=== PATIENT | female | born 1980 | race American Indian/Alaskan Native ===

== ENCOUNTER 2016-11-02 13:49 | Emergency (ER) | payer OTHER ==
[2016-11-02] MEDS ORDERED: ATIVAN IM ONE (15:22)
[2016-11-02 15:54] LABS: Urine Drugs of Abuse Note Disclamer
[2016-11-02 15:59] LABS: Anion Gap 15 mmol/L; BUN/Creatinine Ratio 5.71; Blood Urea Nitrogen 4 mg/dL (7-17); Calcium 8.6 mg/dL (8.4-10.2); Carbon Dioxide 25 mmol/L (22-30); Chloride 106.3 mmol/L (98-107); Glucose 79 mg/dL (65-100); Potassium 4.3 mmol/L (3.6-5.0); Sodium 142 mmol/L (137-145)
--- NOTE | 2016-11-02 16:00 | Emergency Department Report ---
HPI - General Chief Complaint: Overdose Time Seen by Provider: 11/02/16 15:21 - HPI HPI: The patient is a 35-year-old female presents for evaluation of mental health. The patient reports experiencing constant severe sadness and suicidal ideation for the past one week. She reports that she intentionally consumed an unknown amount of Tylenol PM at 11 AM today, 4 hours prior to my evaluation. The patient denies fever, headache, chest pain, abdominal pain, vomiting, hematemesis, unexplained weight loss or weight gain, heat or cold intolerance, skin, hair, or nail changes, neuro deficits, homicidal ideations, or auditory or visual hallucinations. ED Past Medical Hx - Past Medical History Previous Medical History?: No - Surgical History Past Surgical History?: No - Social History Smoking Status: Current Every Day Smoker Substance Use Type: None - Medications Home Medications: Home Medications Medication Instructions Recorded Confirmed Last Taken Type No Known Home Medications [No 11/02/16 11/02/16 Unknown History Reported Home Medications] ED Review of Systems ROS: Stated complaint: SUICIDE ATTEMPT Other details as noted in HPI Constitutional: denies: fever ENT: denies: throat or neck pain Respiratory: denies: cough, shortness of breath Cardiovascular: denies: chest pain Endocrine: denies unexplained weight loss or gain Gastrointestinal: reports abdominal pain, nausea Genitourinary: denies: dysuria Musculoskeletal: denies: leg swelling Skin: denies: rash Neurological: denies: headache Hematological/Lymphatic: denies: easy bleeding or easy bruising Psych: denies sadness or hopelessness Physical Exam - Physical Exam Vital Signs: Vital Signs 11/02/16 14:57 Temperature 98 F Pulse Rate 88 Respiratory 18 Rate Blood Pressure 122/74 [Right] O2 Sat by Pulse 97 Oximetry Physical Exam: General: well-nourished, well-developed, no acute distress Head: Normocephalic, atraumatic Eyes: normal sclera ENT: Mucous membranes are pink and moist Neck: trachea midline, neck supple, No neck stiffness, no cervical adenopathy Respiratory: Breath sounds equal bilaterally, no wheezing, rales, or rhonchi Cardio: S1 and S2 present, no murmurs, rubs, gallops, capillary refill is brisk Abdomen: Normoactive bowel sounds, soft abdomen, no tenderness Chest WALL/Back: No tenderness to palpation of the chest wall, no CVA tenderness with percussion Musc: No pitting edema Skin: No rash Neuro: no facial drooping, normal speech Psych: Normal affect ED Course Vital Signs 11/02/16 14:57 Temperature 98 F Pulse Rate 88 Respiratory 18 Rate Blood Pressure 122/74 [Right] O2 Sat by Pulse 97 Oximetry ED Medical Decision Making - Lab Data Result diagrams: 11/02/16 15:25 11/02/16 15:25 - Medical Decision Making The patient was seen and examined by myself. The patient is placed on a monitor tech and continuous pulse ox. On initial evaluation, the patient was found to be in no distress. Labs are obtained. Mental health evaluates the patient and agrees that the patient is at risk of harm to self. A 1013 is completed. Initial Tylenol level is not elevated. Repeat Tylenol level 4 hours post ingestion is pending. The patient signed off to the on coming [address] Dougherty. She agrees to follow-up on pending Tylenol level and other lab results, and to arrange appropriate ultimate disposition. 11/03/2016 Review patient medical records reveals the patient's repeat Tylenol level 4 hours post ingestion was also negative and the patient was medically cleared. The patient will be admitted to a psychiatric facility once bed placement is obtained. Critical care attestation.: If time is entered above; I have spent that time in minutes in the direct care of this critically ill patient, excluding procedure time. ED Disposition Clinical Impression: Suicidal behavior with attempted self-injury, Intentional overdose of drug in tablet form, At high risk for suicide Disposition: DC/TX-65 PSY HOSP/PSY UNIT Is pt being admited?: No Does the pt Need Aspirin: No Condition: Serious Referrals: PRIMARY CARE, [Primary Care Provider] - 3-5 Days Time of Disposition: 15:56
[2016-11-02 16:03] LABS: Basophils % (Auto) 0.7 % (0.0-1.8); Eosinophils % (Auto) 0.5 % (0.0-4.3); Hematocrit 41.6 % (30.3-42.9); Hemoglobin 13.8 gm/dl (10.1-14.3); Mean Corpuscular HGB Conc 33 % (30-34); Mean Corpuscular Hemoglobin 31 pg (28-32); Mean Corpuscular Volume 94 fl (79-97); Platelet Count 171 K/mm3 (140-440); Red Blood Count 4.44 M/mm3 (3.65-5.03); White Blood Count 6.6 K/mm3 (4.5-11.0)
[2016-11-02 16:08] LABS: Bilirubin,Urine NEG (Negative); Blood,Urine SM (Negative); Ketones,Urine NEG (Negative); Leukocyte Esterase,Urine SM (Negative); Nitrite,Urine NEG (Negative); Protein,Urine <15 mg/dL mg/dL (Negative); Urobilinogen,Urine < 2.0 mg/dL (<2.0)
--- NOTE | 2016-11-03 17:44 | Consultation ---
History of Present Illness - Reason for Consult Consult date: 11/03/16 Reason for consult: psychiatric evaluation - Chief Complaint Chief complaint: "I didn't do anything" 36 year old female seen for psychiatric evaluation in the ER. She reports going through stress and recently received an eviction notice. Her son made a statement about when is she going to be able to provide for them. She states this made her feel worthless. She went to the park and spoke with her tamping machine operator for guidance. She reportedly told him she was tired of not being able to provide. She did not sleep after the argument with her son. She reports taking an OTC sleep aid but denies taking more than recommended. She fell asleep in the car and woke up to the police. The record indicates she may have overdosed on tylenol. She adamately denies this. Her acetominophen level was <15 x 2. No suicide attempts in the past and no self injurious behavior in the past. She denies intention or plan to harm herself. No psychotic symptoms reported or signs elicited. Medications and Allergies Allergies Allergy/AdvReac Type Severity Reaction Status Date / Time No Known Allergies Allergy Unverified 11/02/16 14:38 Home Medications Medication Instructions Recorded Confirmed Last Taken Type No Known Home Medications [No 11/02/16 11/02/16 Unknown History Reported Home Medications] Past psychiatric history - Past Medical History Past Medical History: No medical history Past Surgical History: No surgical history - past Psychiatric treatment and history psychiatric treatment history: None - Social History Social history: smoking, other (lives with her 20 year old son) Mental Status Exam - Vital signs Last Vital Signs Temp 98.4 F 11/03/16 11:09 Pulse 62 11/03/16 11:09 Resp 18 11/03/16 11:09 BP 118/78 11/03/16 11:09 Pulse Ox 99 11/03/16 11:08 - Exam Orientation: time, place, person Affect: anxious Mood: congruent with affect Thought content: other (no SI, no HI) Thought Process: Intact Perceptions: none Speech: normal rate and pattern Concentration: focused Motor activity: normal Level of consciousness: alert Memory: Intact Sleep Symptoms: Difficulty Falling Asleep Interaction: cooperative Results Result Diagrams: 11/02/16 15:25 11/02/16 15:25 All other labs normal. Assessment and Plan Assessment and plan: Impression: Acute stress reaction. Today patient is calm and cooperative during assessment. She denies SI/HI's and AVH's. Positive for marijuana. negative for etoh. I. This screening and assessment is based on information collected from the following sources: Patient II. SUICIDE RISK SCREENING (within last 30 days): A.) Suicidal thoughts/behaviors: She reported being "tired of not being able to provide." She denied suicidal ideation. SUICIDE RISK ASSESSMENT III. FACTORS THAT INCREASE RISK: A.) Demographic and Substance Use Factors: smokes marijuana. denies alcohol use or other illicit substance use B.) Current/Recent Factors (within past 3 months): Psychosocial/Environmental Factors: eviction, argument with her son Physical Illness: None Cognitive/Psychological Factors: None C.) Historical Factors: None D.) Diagnostic/Symptom/Treatment Factors: None E.) Acute Risk Factor Severity (DESC; MILD/MOD/SEVERE): Mild Other factors for this individual that increase risk: IV. FACTORS THAT DECREASE RISK: Resilience/Protective Factors: She is employed x 1 year. Denies known risk of upcoming termination. Patient has support from her tamping machine operator, social club, and mother. She displayed help seeking behavior with this recent stressor by calling her tamping machine operator. Other factors for this individual that decrease risk: Patient denies a desire to harm self. The situation with her son has been resolved when they spoke. V. Clinician's Formulation of Risk and Determination of level of Care: This is a 36-year-old female who is experiencing stress about her life. Since being hospitalized, the patient has consistently denied the desire to harm herself. Additionally, she has become insightful about how to better address her current issue and is open to outpatient counseling. Patient is not impaired by substance. She is able to take care of her ADLs and is not at imminent risk of harm to self or others. Consequently, it is the opinion of the treatment team that the patient is at low risk of suicide and does not meet criteria to continue an involuntary psychiatric hold. Estimation of Imminent Risk: Low due to the above explanation. Determination of Level of Care based on Suicide Risk: Outpatient follow-up. Narrative description of clinical reasoning. (This must be completed on all patients): . Plan and Interventions based on Suicide Risk: This patient will likely be stepped down to an outpatient mental health center in the community upon discharge and follow-up within 7 days of his discharge from the hospital. VII. Discharge/After Hours Support Plan: Patient can return back to the ER, call 911 or crisis line if symptoms of depression, anxiety, suicidality return. Recommendation/Plan: Rescind 1013. No medications indicated at this time. Patient given outpatient psy services information for her local area. Payroll Analyst provided the patient with locations to seek primary care services. Discussed the importance to abstain from alcohol consumption and recreational drug use.
[2016-11-04 12:41] VITALS: BP 115/80
--- NOTE | 2016-11-04 15:53 | Progress Note ---
Subjective - Reason for Consult Reason for consult: evaluate if 1013 can be rescinded Mental Status Exam - Vital signs Last Vital Signs Temp 98.8 F 11/04/16 12:39 Pulse 68 11/04/16 12:39 Resp 18 11/04/16 12:41 BP 115/80 11/04/16 12:39 Pulse Ox 95 11/04/16 12:41 Assessment and Plan The patient continues to note that she is not experiencing suicidal thoughts and never has. Additionally, patient notes that she never overdosed. General Appearance: casually dressed, no acute distress Sensorium/Consciousness: alert and responding to external stimuli; clear Orientation: person, place, time and situation Eye Contact: Fair Attitude / Behavior: Cooperative Psychomotor & Musculoskeletal Activity: WNL Mood: ok Affect: Euthymic Speech / Language: fluent, with normal rate/rhythm/tone Thought Processes: organized, logical, linear Thought Content: no SI, no HI Perception: no AVH Insight: Fair Judgement: Fair Capacity for ADLs: independent I. This screening and assessment is based on information collected from the following sources: Patient II. SUICIDE RISK SCREENING (within last 30 days): A.) Suicidal thoughts/behaviors: She reported being "tired of not being able to provide." She denied suicidal ideation. SUICIDE RISK ASSESSMENT III. FACTORS THAT INCREASE RISK: A.) Demographic and Substance Use Factors: smokes marijuana. denies alcohol use or other illicit substance use B.) Current/Recent Factors (within past 3 months): Psychosocial/Environmental Factors: eviction, argument with her son Physical Illness: None Cognitive/Psychological Factors: None C.) Historical Factors: None D.) Diagnostic/Symptom/Treatment Factors: None E.) Acute Risk Factor Severity (DESC; MILD/MOD/SEVERE): Mild Other factors for this individual that increase risk: IV. FACTORS THAT DECREASE RISK: Resilience/Protective Factors: She is employed x 1 year. Denies known risk of upcoming termination. Patient has support from her salesperson flowers, social club, and mother. She displayed help seeking behavior with this recent stressor by calling her salesperson flowers. Other factors for this individual that decrease risk: Patient denies a desire to harm self. The situation with her son has been resolved when they spoke. V. Clinician's Formulation of Risk and Determination of level of Care: Estimation of Imminent Risk: Low due to the above explanation. Determination of Level of Care based on Suicide Risk: Outpatient follow-up. Narrative description of clinical reasoning. (This must be completed on all patients): This is a 36-year-old female who is experiencing stress about her life. Since being hospitalized, the patient has consistently denied the desire to harm herself. Additionally, she has become insightful about how to better address her current issue and is open to outpatient counseling. Patient is not impaired by substances. She is able to take care of her ADLs and is not at imminent risk of harm to self or others. Consequently, it is the opinion of the treatment team that the patient is at low risk of suicide and does not meet criteria to continue an involuntary psychiatric hold. . Plan and Interventions based on Suicide Risk: This patient will likely be stepped down to an outpatient mental health center in the community upon discharge and follow-up within 7 days of his discharge from the hospital. VII. Discharge/After Hours Support Plan: Patient can return back to the ER, call 911 or crisis line if symptoms of depression, anxiety, suicidality return. Recommendation/Plan: Rescind 1013. No medications indicated at this time. Patient given outpatient psychiatric services information for her local area. Heel Slicker provided the patient with locations to seek primary care services. Discussed the importance to abstain from alcohol consumption and recreational drug use.
== END 2016-11-04 16:40 | disposition home or self-care (01) ==
LOC: EDBD → ED 13:49
DX: T65.92XA Toxic effect of unspecified substance, intentional self-harm, initial encounter (principal); F17.200 Nicotine dependence, unspecified, uncomplicated; Y92.9 Unspecified place or not applicable
CPT/HCPCS: 36415; 80048; 80307; 81001; 84703; 85025; 93005; 93010; 99285; G0480; 80320

== ENCOUNTER 2020-02-16 12:06 | Emergency (ER) | payer SELFPAY ==
[2020-02-16 13:11] VITALS: BP 158/101
--- NOTE | 2020-02-16 13:11 | Emergency Department Report ---
ED Medical Clearance HPI - General Chief complaint: Psych Stated complaint: MEDICAL CLEARENCE Time Seen by Provider: 02/16/20 12:59 Source: patient Mode of arrival: Ambulatory Limitations: No Limitations - History of Present Illness Initial comments: Chief complaint: "I just got overwhelmed." HPI: This is a 39-year-old female with history of major depressive disorder and previous suicide attempt who presents to the emergency department after intentio nal overdose last night 9 PM. Patient took 7 tablets of Tylenol #3. This morning, sherealized that she needed help. She went to [facility] to be admitted for psychiatric care. Patient was transported with sitter via EMS for medical clearance. Patient denies any physical concerns. Patient denies chest pain abdominal pain vomiting. Patient states that her father's birthday on Sunday caused her great distress. Her father's birthday elicited memories of childhood trauma. Sitter is at the bedside. Complaint: medical clearance request -: Last night Reason for Medical Clearance: psychiatric condition Place: home Alledged Intoxication: No Traumatic Symptoms: denies traumatic injury Treatments Prior to Arrival: other (Admission to [facility].) Home medications: Home Medications Medication Instructions Recorded Confirmed Last Taken No Known Home Medications [No 11/02/16 11/02/16 Unknown Reported Home Medications] Allergies/Adverse reactions: Allergies Allergy/AdvReac Type Severity Reaction Status Date / Time No Known Allergies Allergy Unverified 11/02/16 14:38 ED Review of Systems ROS: Stated complaint: MEDICAL CLEARENCE Other details as noted in HPI Comment: All other systems reviewed and negative Constitutional: denies: fever, malaise Respiratory: denies: cough Cardiovascular: denies: chest pain Gastrointestinal: denies: abdominal pain, nausea, vomiting ED Past Medical Hx - Past Medical History Previous Medical History?: Yes Hx Psychiatric Treatment: Yes (depression, suicide attempts) - Surgical History Past Surgical History?: Yes Additional Surgical History: tubiligation - Social History Smoking Status: Unknown if ever smoked Substance Use Type: None - Medications Home Medications: Home Medications Medication Instructions Recorded Confirmed Last Taken Type No Known Home Medications [No 11/02/16 11/02/16 Unknown History Reported Home Medications] ED Physical Exam - General Limitations: No Limitations General appearance: alert, in no apparent distress - Head Head exam: Present: atraumatic, normocephalic - Eye Eye exam: Present: normal appearance - ENT ENT exam: Present: mucous membranes moist - Neck Neck exam: Present: normal inspection, full ROM - Respiratory Respiratory exam: Present: normal lung sounds bilaterally. Absent: respiratory distress, wheezes, rales, rhonchi - Cardiovascular Cardiovascular Exam: Present: regular rate, normal rhythm, normal heart sounds. Absent: systolic murmur, diastolic murmur, rubs, gallop - GI/Abdominal GI/Abdominal exam: Present: soft, normal bowel sounds. Absent: distended, tenderness, guarding, rebound - Extremities Exam Extremities exam: Present: normal inspection - Neurological Exam Neurological exam: Present: alert, oriented X3 - Psychiatric Psychiatric exam: Present: normal affect, depressed, flat affect, suicidal ideation - Skin Skin exam: Present: warm, dry, intact, normal color. Absent: rash ED Course Vital Signs 02/16/20 02/16/20 13:11 13:12 Temperature 98.5 F Pulse Rate 64 Respiratory 18 18 Rate Blood Pressure 158/101 [Right] O2 Sat by Pulse 97 100 Oximetry ED Medical Decision Making - Lab Data Result diagrams: 02/16/20 13:34 02/16/20 13:34 - Medical Decision Making Ms. Randle presents with suicide attempt. Her ingestion is nonlethal. Acet aminophen level is negative which was obtained 15 hours after her ingestion. She is currently asymptomatic. Hepatic panel normal. I have reviewed labs obtained CBC chemistry hepatic panel all within normal limits. hCG is negative. Urinalysis contaminated sample. Upon reexamination, patient denies symptoms of UTI such as frequency urgency dysuria. Patient is medically clear for psychiatric care. Patient will be transported back to [facility]. ED Disposition Clinical Impression: Intentional drug overdose, Suicide attempt, Major depressive disorder, Medical clearance for psychiatric admission Disposition: DC/TX-70 ANOTHER TYPE HLTHCARE Is pt being admited?: No Does the pt Need Aspirin: No Condition: Stable
[2020-02-16 13:51] LABS: Bacteria,Urine 1+ /HPF (Negative); Bilirubin,Urine NEG (Negative); Blood,Urine LG (Negative); Color,Urine Yellow (Yellow); Mucus,Urine 3+ /HPF; Urobilinogen,Urine < 2.0 mg/dL (<2.0)
[2020-02-16 13:57] LABS: Basophils % (Auto) 0.6 % (0.0-1.8); Eosinophils % (Auto) 0.3 % (0.0-4.3); Hematocrit 47.6 % (30.3-42.9); Lymphocytes # (Auto) 1.6 K/mm3 (1.2-5.4); Lymphocytes % (Auto) 24.4 % (13.4-35.0); Mean Corpuscular HGB Conc 34 % (30-34); Mean Corpuscular Volume 96 fl (79-97); Monocytes # (Auto) 0.4 K/mm3 (0.0-0.8); Monocytes % (Auto) 5.9 % (0.0-7.3); Platelet Count 147 K/mm3 (140-440); Red Blood Count 4.96 M/mm3 (3.65-5.03); Red Cell Distribution Width 14.3 % (13.2-15.2)
[2020-02-16 13:59] LABS: Amphetamine Screen,Urine PRESUMPTIVE NEGATIVE; Benzodiazepines Screen,Urine PRESUMPTIVE NEGATIVE; Cannabinoid Screen,Urine PRESUMPTIVE POSITIVE; Cocaine Screen,Urine PRESUMPTIVE NEGATIVE; Methadone Screen,Urine PRESUMPTIVE NEGATIVE; Opiate Screen,Urine PRESUMPTIVE POSITIVE
[2020-02-16 14:08] LABS: Blood Urea Nitrogen 6 mg/dL (7-17); Calcium 9.1 mg/dL (8.4-10.2); Hemolysis Index 3
[2020-02-16 14:11] LABS: Albumin 3.9 g/dL (3.9-5); Bilirubin,Direct 0.2 mg/dL (0-0.2)
[2020-02-16 14:22] LABS: BUN/Creatinine Ratio 12
== END 2020-02-16 16:50 | disposition other institution (70) ==
LOC: ED 12:06
DX: T50.902A Poisoning by unspecified drugs, medicaments and biological substances, intentional self-harm, initial encounter (principal); R45.851 Suicidal ideations; F32.9 Major depressive disorder, single episode, unspecified; Z98.51 Tubal ligation status; Z00.8 Encounter for other general examination; Y92.89 Other specified places as the place of occurrence of the external cause
CPT/HCPCS: 36415; 80048; 80076; 80307; 80320; 81001; 84703; 85025; 87076; 87086; 87186; G0480

== ENCOUNTER 2020-09-05 16:20 | Emergency (ER) | payer SELFPAY ==
[2020-09-05] MEDS ORDERED: SODIUM CHLORIDE 0.9% 1000 ML 1,000 ML IV ONE (16:45)
--- NOTE | 2020-09-05 16:49 | Emergency Department Report ---
ED Altered Mental Status HPI - General Stated Complaint: SYNCOPE Time Seen by Provider: 09/05/20 16:35 - History of Present Illness Initial Comments: 39-year-old female presents to ED following syncopal episode. 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 Per patient's sister who is at bedside, she states she was told by patient's coworkers that the patient drink 1 alcoholic drink, smoked hookah, and took a 200 mg marijuana edible, then passed out. Patient is currently awake, but not speaking or responding. Sister states patient has a history of chronic back pain, however, she only takes a muscle relaxer. MD Complaint: altered mental status -: hour(s) (1) Severity: moderate Consistency of Symptoms: constant Context: alcohol abuse, drug abuse Treatments Prior to Arrival: spinal immobilization - Related Data Previous Rx's Medication Instructions Recorded Last Taken Type Sulfamethoxazole/Trimethoprim 1 each PO BID 3 Days #6 tablet 09/05/20 Unknown Rx [Bactrim DS TAB] Allergies Allergy/AdvReac Type Severity Reaction Status Date / Time No Known Allergies Allergy Unverified 11/02/16 14:38 ED Review of Systems ROS: Stated complaint: SYNCOPE Other details as noted in HPI Comment: Unobtainable due to pts medical conditions ED Past Medical Hx - Past Medical History Hx Psychiatric Treatment: Yes (depression, suicide attempts) - Surgical History Additional Surgical History: tubiligation - Social History Smoking Status: Unknown if ever smoked Substance Use Type: None - Medications Home Medications: Home Medications Medication Instructions Recorded Confirmed Last Taken Type Sulfamethoxazole/Trimethoprim 1 each PO BID 3 Days #6 tablet 09/05/20 Unknown Rx [Bactrim DS TAB] ED Physical Exam - Head Head exam: Present: atraumatic, normocephalic - Eye Eye exam: Present: normal appearance, PERRL - ENT ENT exam: Present: mucous membranes moist - Neck Neck exam: Present: normal inspection, other (C-collar in place) - Respiratory Respiratory exam: Present: normal lung sounds bilaterally. Absent: respiratory distress - Cardiovascular Cardiovascular Exam: Present: regular rate, normal rhythm - GI/Abdominal GI/Abdominal exam: Present: soft. Absent: distended, tenderness - Extremities Exam Extremities exam: Present: normal inspection - Neurological Exam Neurological exam: Present: altered - Psychiatric Psychiatric exam: Present: flat affect - Skin Skin exam: Present: warm, dry, intact, normal color ED Course Vital Signs 09/05/20 09/05/20 09/05/20 16:26 16:30 16:43 Pulse Rate 88 92 H 90 Respiratory 15 29 H 24 Rate Blood Pressure 143/85 138/85 O2 Sat by Pulse 97 96 Oximetry 09/05/20 09/05/20 09/05/20 16:45 16:55 17:08 Pulse Rate 86 87 Respiratory 26 H 24 16 Rate Blood Pressure 138/81 138/81 O2 Sat by Pulse 97 96 Oximetry 09/05/20 09/05/20 09/05/20 17:16 17:30 18:00 Pulse Rate 86 89 95 H Respiratory 24 24 22 Rate Blood Pressure 140/86 150/78 143/84 O2 Sat by Pulse 97 99 97 Oximetry 09/05/20 09/05/20 18:30 19:00 Pulse Rate 87 80 Respiratory 18 22 Rate Blood Pressure 134/81 134/78 O2 Sat by Pulse 96 97 Oximetry - Reevaluation(s) Reevaluation #1: 09/05/20 18:46 Patient currently at baseline. No longer altered. GCS of 15. Only complaining of a headache. Motrin ordered. Reevaluation #2: 09/05/20 19:09 Pt able to ambulate to the bathroom and back without difficulty or assistance. - Lab Data Result diagrams: 09/05/20 17:18 09/05/20 17:18 Lab Results 09/05/20 09/05/20 09/05/20 Range/Units 16:32 17:18 17:18 WBC 7.2 (4.5-11.0) K/mm3 RBC 4.45 (3.65-5.03) M/mm3 Hgb 15.0 H (10.1-14.3) gm/dl Hct 44.1 H (30.3-42.9) % MCV 99 H (79-97) fl MCH 34 H (28-32) pg MCHC 34 (30-34) % RDW 13.6 (13.2-15.2) % Plt Count 180 (140-440) K/mm3 Lymph % (Auto) 17.5 (13.4-35.0) % [place] % (Auto) 5.0 (0.0-7.3) % Eos % (Auto) 0.2 (0.0-4.3) % Baso % (Auto) 0.3 (0.0-1.8) % Lymph # (Auto) 1.3 (1.2-5.4) K/mm3 [place] # (Auto) 0.4 (0.0-0.8) K/mm3 Eos # (Auto) 0.0 (0.0-0.4) K/mm3 Baso # (Auto) 0.0 (0.0-0.1) K/mm3 Seg Neutrophils % 77.0 H (40.0-70.0) % Seg Neutrophils # 5.5 (1.8-7.7) K/mm3 PT 12.9 (12.2-14.9) Sec. INR 0.98 (0.87-1.13) APTT 26.4 (24.2-36.6) Sec. Sodium (137-145) mmol/L Potassium (3.6-5.0) mmol/L Chloride (98-107) mmol/L Carbon Dioxide (22-30) mmol/L Anion Gap mmol/L BUN (7-17) mg/dL Creatinine (0.6-1.2) mg/dL Estimated GFR ml/min BUN/Creatinine Ratio % Glucose (65-100) mg/dL POC Glucose 105 (70-105) mg/dL Calcium (8.4-10.2) mg/dL Troponin T (0.00-0.029) ng/mL HCG, Qual (Negative) Urine Color (Yellow) Urine Turbidity (Clear) Urine pH (5.0-7.0) Ur Specific [place] (1.003-1.030) Urine Protein (Negative) mg/dL Urine Glucose (UA) (Negative) mg/dL Urine Ketones (Negative) mg/dL Urine Blood (Negative) Urine Nitrite (Negative) Urine Bilirubin (Negative) Urine Urobilinogen (<2.0) mg/dL Ur Leukocyte Esterase (Negative) Urine WBC (Auto) (0.0-6.0) /HPF Urine RBC (Auto) (0.0-6.0) /HPF U Epithel Cells (Auto) (0-13.0) /HPF Urine Mucus /HPF Salicylates (2.8-20.0) mg/dL Urine Opiates Screen Urine Methadone Screen Acetaminophen (10.0-30.0) ug/mL Ur Barbiturates Screen Ur Phencyclidine Scrn Ur Amphetamines Screen U Benzodiazepines Scrn Urine Cocaine Screen U Marijuana (THC) Screen Drugs of Abuse Note Plasma/Serum Alcohol (0-0.07) % 09/05/20 09/05/20 09/05/20 Range/Units 17:18 17:18 17:18 WBC (4.5-11.0) K/mm3 RBC (3.65-5.03) M/mm3 Hgb (10.1-14.3) gm/dl Hct (30.3-42.9) % MCV (79-97) fl MCH (28-32) pg MCHC (30-34) % RDW (13.2-15.2) % Plt Count (140-440) K/mm3 Lymph % (Auto) (13.4-35.0) % [place] % (Auto) (0.0-7.3) % Eos % (Auto) (0.0-4.3) % Baso % (Auto) (0.0-1.8) % Lymph # (Auto) (1.2-5.4) K/mm3 [place] # (Auto) (0.0-0.8) K/mm3 Eos # (Auto) (0.0-0.4) K/mm3 Baso # (Auto) (0.0-0.1) K/mm3 Seg Neutrophils % (40.0-70.0) % Seg Neutrophils # (1.8-7.7) K/mm3 PT (12.2-14.9) Sec. INR (0.87-1.13) APTT (24.2-36.6) Sec. Sodium 140 (137-145) mmol/L Potassium 4.1 (3.6-5.0) mmol/L Chloride 102.4 (98-107) mmol/L Carbon Dioxide 24 (22-30) mmol/L Anion Gap 18 mmol/L BUN 6 L (7-17) mg/dL Creatinine 0.8 (0.6-1.2) mg/dL Estimated GFR > 60 ml/min BUN/Creatinine Ratio 8 % Glucose 86 (65-100) mg/dL POC Glucose (70-105) mg/dL Calcium 8.7 (8.4-10.2) mg/dL Troponin T < 0.010 (0.00-0.029) ng/mL HCG, Qual (Negative) Urine Color (Yellow) Urine Turbidity (Clear) Urine pH (5.0-7.0) Ur Specific [place] (1.003-1.030) Urine Protein (Negative) mg/dL Urine Glucose (UA) (Negative) mg/dL Urine Ketones (Negative) mg/dL Urine Blood (Negative) Urine Nitrite (Negative) Urine Bilirubin (Negative) Urine Urobilinogen (<2.0) mg/dL Ur Leukocyte Esterase (Negative) Urine WBC (Auto) (0.0-6.0) /HPF Urine RBC (Auto) (0.0-6.0) /HPF U Epithel Cells (Auto) (0-13.0) /HPF Urine Mucus /HPF Salicylates < 0.3 L (2.8-20.0) mg/dL Urine Opiates Screen Urine Methadone Screen Acetaminophen 5.0 L (10.0-30.0) ug/mL Ur Barbiturates Screen Ur Phencyclidine Scrn Ur Amphetamines Screen U Benzodiazepines Scrn Urine Cocaine Screen U Marijuana (THC) Screen Drugs of Abuse Note Plasma/Serum Alcohol (0-0.07) % 09/05/20 09/05/20 09/05/20 Range/Units 17:18 17:18 17:42 WBC (4.5-11.0) K/mm3 RBC (3.65-5.03) M/mm3 Hgb (10.1-14.3) gm/dl Hct (30.3-42.9) % MCV (79-97) fl MCH (28-32) pg MCHC (30-34) % RDW (13.2-15.2) % Plt Count (140-440) K/mm3 Lymph % (Auto) (13.4-35.0) % [place] % (Auto) (0.0-7.3) % Eos % (Auto) (0.0-4.3) % Baso % (Auto) (0.0-1.8) % Lymph # (Auto) (1.2-5.4) K/mm3 [place] # (Auto) (0.0-0.8) K/mm3 Eos # (Auto) (0.0-0.4) K/mm3 Baso # (Auto) (0.0-0.1) K/mm3 Seg Neutrophils % (40.0-70.0) % Seg Neutrophils # (1.8-7.7) K/mm3 PT (12.2-14.9) Sec. INR (0.87-1.13) APTT (24.2-36.6) Sec. Sodium (137-145) mmol/L Potassium (3.6-5.0) mmol/L Chloride (98-107) mmol/L Carbon Dioxide (22-30) mmol/L Anion Gap mmol/L BUN (7-17) mg/dL Creatinine (0.6-1.2) mg/dL Estimated GFR ml/min BUN/Creatinine Ratio % Glucose (65-100) mg/dL POC Glucose (70-105) mg/dL Calcium (8.4-10.2) mg/dL Troponin T (0.00-0.029) ng/mL HCG, Qual Negative (Negative) Urine Color [place] (Yellow) Urine Turbidity Slightly-cloudy (Clear) Urine pH 6.0 (5.0-7.0) Ur Specific [place] 1.020 (1.003-1.030) Urine Protein 30 mg/dl (Negative) mg/dL Urine Glucose (UA) Neg (Negative) mg/dL Urine Ketones Tr (Negative) mg/dL Urine Blood Sm (Negative) Urine Nitrite Pos (Negative) Urine Bilirubin Neg (Negative) Urine Urobilinogen 2.0 (<2.0) mg/dL Ur Leukocyte Esterase Sm (Negative) Urine WBC (Auto) 29.0 H (0.0-6.0) /HPF Urine RBC (Auto) 5.0 (0.0-6.0) /HPF U Epithel Cells (Auto) 1.0 (0-13.0) /HPF Urine Mucus 3+ /HPF Salicylates (2.8-20.0) mg/dL Urine Opiates Screen Urine Methadone Screen Acetaminophen (10.0-30.0) ug/mL Ur Barbiturates Screen Ur Phencyclidine Scrn Ur Amphetamines Screen U Benzodiazepines Scrn Urine Cocaine Screen U Marijuana (THC) Screen Drugs of Abuse Note Plasma/Serum Alcohol 0.04 (0-0.07) % 09/05/20 Range/Units 17:42 WBC (4.5-11.0) K/mm3 RBC (3.65-5.03) M/mm3 Hgb (10.1-14.3) gm/dl Hct (30.3-42.9) % MCV (79-97) fl MCH (28-32) pg MCHC (30-34) % RDW (13.2-15.2) % Plt Count (140-440) K/mm3 Lymph % (Auto) (13.4-35.0) % [place] % (Auto) (0.0-7.3) % Eos % (Auto) (0.0-4.3) % Baso % (Auto) (0.0-1.8) % Lymph # (Auto) (1.2-5.4) K/mm3 [place] # (Auto) (0.0-0.8) K/mm3 Eos # (Auto) (0.0-0.4) K/mm3 Baso # (Auto) (0.0-0.1) K/mm3 Seg Neutrophils % (40.0-70.0) % Seg Neutrophils # (1.8-7.7) K/mm3 PT (12.2-14.9) Sec. INR (0.87-1.13) APTT (24.2-36.6) Sec. Sodium (137-145) mmol/L Potassium (3.6-5.0) mmol/L Chloride (98-107) mmol/L Carbon Dioxide (22-30) mmol/L Anion Gap mmol/L BUN (7-17) mg/dL Creatinine (0.6-1.2) mg/dL Estimated GFR ml/min BUN/Creatinine Ratio % Glucose (65-100) mg/dL POC Glucose (70-105) mg/dL Calcium (8.4-10.2) mg/dL Troponin T (0.00-0.029) ng/mL HCG, Qual (Negative) Urine Color (Yellow) Urine Turbidity (Clear) Urine pH (5.0-7.0) Ur Specific [place] (1.003-1.030) Urine Protein (Negative) mg/dL Urine Glucose (UA) (Negative) mg/dL Urine Ketones (Negative) mg/dL Urine Blood (Negative) Urine Nitrite (Negative) Urine Bilirubin (Negative) Urine Urobilinogen (<2.0) mg/dL Ur Leukocyte Esterase (Negative) Urine WBC (Auto) (0.0-6.0) /HPF Urine RBC (Auto) (0.0-6.0) /HPF U Epithel Cells (Auto) (0-13.0) /HPF Urine Mucus /HPF Salicylates (2.8-20.0) mg/dL Urine Opiates Screen Negative Urine Methadone Screen Negative Acetaminophen (10.0-30.0) ug/mL Ur Barbiturates Screen Negative Ur Phencyclidine Scrn Negative Ur Amphetamines Screen Negative U Benzodiazepines Scrn Negative Urine Cocaine Screen Negative U Marijuana (THC) Screen Positive Drugs of Abuse Note Disclamer Plasma/Serum Alcohol (0-0.07) % - EKG Data -: EKG Interpreted by Nm EKG shows normal: sinus rhythm, axis, intervals, QRS complexes, ST-T waves Rate: normal Interpretation: no acute changes - Radiology Data Radiology results: report reviewed, image reviewed - Medical Decision Making 39-year-old female presents to ED following a syncopal episode. Patient reportedly was drinking and also took a marijuana edible prior to her syncopal episode. Here in the ED, her vital signs are normal. Patient was initially somewhat altered, however she is currently at baseline, alert and oriented x3. CT head and C-spine are normal. Labs are unremarkable. EKG is normal. IV fluids given. Patient is feeling much better at this time. Reports ambulate to the bathroom with steady gait. Will discharge at this time. Outpatient follow- up advised, return precautions given. - Differential Diagnosis Arrhythmia, dehydration, intracranial abnormality, intoxication Critical care attestation.: If time is entered above; I have spent that time in minutes in the direct care of this critically ill patient, excluding procedure time. ED Disposition Clinical Impression: Syncope, UTI (urinary tract infection) Disposition: TO HOME OR SELFCARE Is pt being admited?: No Condition: Stable Instructions: Urinary Tract Infection, Adult, [id number], Syncope, E asy-to-Read, Syncope (ED) Prescriptions: Sulfamethoxazole/Trimethoprim [Bactrim DS TAB] 1 each PO BID 3 Days #6 tablet Referrals: PRIMARY CARE, [Primary Care Provider] - 3-5 Days [facility] [Provider Group] - 3-5 Days Time of Disposition: 19:10
--- NOTE | 2020-09-05 17:38 | Cat Scan Report ---
CT HEAD WITHOUT CONTRAST INDICATION / CLINICAL INFORMATION: AMS. Patient fell sustaining head and neck injury. TECHNIQUE: All CT scans at this location are performed using CT dose reduction for ALARA by means of automated e xposure control. COMPARISON: None available. FINDINGS: HEMORRHAGE: No evidence of intracranial hemorrhage or extra-axial fluid collection. EXTRA-AXIAL SPACES: Cortical sulci, sylvian fissures and basilar cisterns have an unremarkable appear ance. VENTRICULAR SYSTEM: The third and lateral ventricles are of normal size and configuration. CEREBRAL PARENCHYMA: No areas of abnormal brain parenchymal attenuation are identified. There is no i ndication of recent infarction. MIDLINE SHIFT OR HERNIATION: There is no mass effect. CEREBELLUM / BRAINSTEM: Brainstem and cerebellum have an unremarkable appearance. MIDLINE STRUCTURES:No abnormalities of the pituitary gland or pineal region are identified. INTRACRANIAL VESSELS:No abnormalities are identified on this noncontrast head CT. ORBITS: visualized portions of the orbits have an unremarkable appearance. SOFT TISSUES of HEAD: No significant abnormality. CALVARIUM: Evaluation of bone windows reveals no abnormalities. PARANASAL SINUSES / MASTOID AIR CELLS: Visualized portions of the paranasal sinuses are free from inf lammatory mucosal disease. Mastoid air cells are normally pneumatized. IMPRESSION: 1. Normal head CT without contrast. Signer Name: Matt Henson MD Signed: 09/05/2020 5:33 PM Workstation Name: [id number]
--- NOTE | 2020-09-05 17:43 | Cat Scan Report ---
CT CERVICAL SPINE WITHOUT CONTRAST INDICATION / CLINICAL INFORMATION: Trauma. Patient fell. Neck pain. TECHNIQUE: Axial CT images were obtained through the cervical spine. Sagittal and coronal reformatted images wer e produced. All CT scans at this location are performed using CT dose reduction for ALARA by means of automated exposure control. COMPARISON: None available. FINDINGS: ALIGNMENT: Normal alignment is maintained throughout the cervical region. There is no indication of t raumatic subluxation. VERTEBRAE: No indication of fracture or bone destruction. DISC SPACES: Mild loss of disc height is noted at the C5-6 level. INDIVIDUAL LEVEL ANALYSIS: C2-3:No abnormality. C3-4:No abnormality. C4-5:No abnormality. C5-6: Loss of disc height is noted. Anterior and posterior osteophyte formation is observed. Central spinal canal and neuroforamina are adequately maintained. C6-7:No abnormality. C7-T1:No abnormality. CRANIOCERVICAL JUNCTION:No significant abnormality. SPINAL CANAL: Central spinal canal is adequately maintained throughout. PARASPINAL SOFT TISSUES: No significant abnormality. LUNG APICES: No significant abnormality of visualized lungs. IMPRESSION: 1. Indication of fracture or traumatic subluxation. 2. Mild degenerative changes C5-6. Signer Name: Matt Henson MD Signed: 09/05/2020 5:39 PM Workstation Name: [id number]
[2020-09-05 17:48] LABS: Basophils % (Auto) 0.3 % (0.0-1.8); Eosinophils % (Auto) 0.2 % (0.0-4.3); Hematocrit 44.1 % (30.3-42.9); Lymphocytes # (Auto) 1.3 K/mm3 (1.2-5.4); Lymphocytes % (Auto) 17.5 % (13.4-35.0); Mean Corpuscular HGB Conc 34 % (30-34); Mean Corpuscular Volume 99 fl (79-97); Monocytes # (Auto) 0.4 K/mm3 (0.0-0.8); Platelet Count 180 K/mm3 (140-440); Red Blood Count 4.45 M/mm3 (3.65-5.03); Red Cell Distribution Width 13.6 % (13.2-15.2)
[2020-09-05 17:56] LABS: Bilirubin,Urine NEG (Negative); Blood,Urine SM (Negative); Color,Urine Amber (Yellow); Mucus,Urine 3+ /HPF
[2020-09-05 17:59] LABS: INR 0.98 (0.87-1.13)
[2020-09-05 18:00] LABS: Partial Thromboplastin Time 26.4 Sec. (24.2-36.6)
[2020-09-05 18:06] LABS: Amphetamine Screen,Urine Negative; Benzodiazepines Screen,Urine Negative; Cocaine Screen,Urine Negative; Methadone Screen,Urine Negative; Opiate Screen,Urine Negative
[2020-09-05 18:08] LABS: BUN/Creatinine Ratio 8; Blood Urea Nitrogen 6 mg/dL (7-17); Calcium 8.7 mg/dL (8.4-10.2); Hemolysis Index 84
[2020-09-05 18:18] LABS: Cannabinoid Screen,Urine Positive
[2020-09-05] MEDS ORDERED: IBUPROFEN 800 MG TAB PO ONE (18:46)
[2020-09-05 19:11] VITALS: BP 134/78
--- NOTE | 2020-09-07 12:58 | Electrocardiograph Report ---
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
== END 2020-09-05 19:25 | disposition home or self-care (01) ==
LOC: ED 16:20
DX: R55 Syncope and collapse (principal); N39.0 Urinary tract infection, site not specified; F32.9 Major depressive disorder, single episode, unspecified; Z79.899 Other long term (current) drug therapy; Z98.51 Tubal ligation status
CPT/HCPCS: 36415; 70450; 72125; 80048; 80307; 81001; 82962; 84484; 84703; 85025; 85610; 85730; 87076; 87086; 87186; 93005; 96360; 99285; J7030; 80320; G0480